=== PATIENT | male | born 1995 | race Caucasian/White ===

== ENCOUNTER 2017-01-02 10:22 | Emergency (ER) | payer BC ==
[2017-01-02 10:44] VITALS: BP 123/79
--- NOTE | 2017-01-02 12:04 | UC ---
Complaint Male HPI - HPI Summary HPI Summary: concerned about spots on and around penis--began about 1 week after having unprotected sex with a women - History of Current Complaint Chief Complaint: UCGU Stated Complaint: PERSONAL Time Seen by Provider: 01/02/17 11:41 Hx Obtained From: Patient Onset/Duration: Gradual Onset, Lasting Days, Still Present Timing: Constant Severity Initially: Mild Severity Currently: None Pain Intensity: 0 Pain Scale Used: 0-10 Numeric Location: Groin Aggravating Factor(s): Nothing Alleviating Factor(s): Nothing Associated Signs And Symptoms: Positive: Negative - Allergies/Home Medications Allergies/Adverse Reactions: Allergies Allergy/AdvReac Type Severity Reaction Status Date / Time No Known Allergies Allergy Verified 01/02/17 10:44 PMH/Surg Hx/FS Hx/Imm Hx Previously Healthy: Yes - Surgical History Surgical History: Yes Surgery Procedure, Year, and Place: t/a at age 12 yrs - Family History Known Family History: Positive: None Family History: no cardiovascular issues reported in family lineage - Social History Occupation: Student Lives: With Family Alcohol Use: Occasionally Substance Use Type: None Smoking Status (MU): Never Smoked Tobacco - Immunization History Most Recent Influenza Vaccination: no this year Hx Tetanus, Diphtheria Vaccination: Yes Immunizations Comment: has no had HPV Vaccine Review of Systems Constitutional: Negative Skin: Rash - scattered non painful discrete raised some are pustular on penis and pubic area Eyes: Negative ENT: Negative Respiratory: Negative Cardiovascular: Negative Gastrointestinal: Negative Genitourinary: Negative Motor: Negative Neurovascular: Negative Musculoskeletal: Negative Neurological: Negative Psychological: Negative All Other Systems Reviewed And Are Negative: Yes Physical Exam Triage Information Reviewed: Yes Appearance: Well-Appearing, No Pain Distress, Well-Nourished Vital Signs: Initial Vital Signs Temp 98.3 F 01/02/17 10:38 Pulse 85 01/02/17 10:38 Resp 18 01/02/17 10:38 BP 123/79 01/02/17 10:38 Vital Signs Reviewed: Yes Eye Exam: Normal Eyes: Positive: Conjunctiva Clear ENT Exam: Normal ENT: Positive: Normal ENT inspection, Hearing grossly normal. Negative: Nasal congestion, Nasal drainage, Trismus, Muffled/hoarse voice Dental Exam: Normal Neck exam: Normal Neck: Positive: Supple, Nontender, No Lymphadenopathy Respiratory Exam: Normal Respiratory: Positive: No respiratory distress, No accessory muscle use Cardiovascular Exam: Normal Cardiovascular: Positive: RRR, Pulses Normal, Brisk Capillary Refill Musculoskeletal Exam: Normal Musculoskeletal: Positive: Strength Intact, ROM Intact, No Edema Neurological Exam: Normal Neurological: Positive: Alert, Muscle Tone Normal Psychological Exam: Normal Psychological: Positive: Normal Response To Family Skin: Positive: Other - scattered discrete papular and pustular rash, not painful on pernis and pubic area--patients does shave Complaint Male Course/Dx - Course Course Of Treatment: bactrim, gentle warm wash, avoid stretching any tight clothing, [facility] at [facility] or here if needed - Differential Dx/Diagnosis Differential Diagnosis/HQI/PQRI: Other - HPV, folliculitis Provider Diagnoses: Folliculitis Discharge - Discharge Plan Condition: Stable Disposition: HOME Prescriptions: Sulfamethox/Trimethoprim DS* [Bactrim DS 800/160 TAB*] 1 tab PO BID #14 tab Patient Education Materials: Genital Warts (ED), Folliculitis (ED), HPV (Human Papillomavirus) Vaccine for Adults (ED) Referrals: Non Staff,Doctor [Primary Care Provider] - 2 Weeks Additional Instructions: The [facility] in [place] is an excellent resource for sexual health in [facility]
== END 2017-01-02 12:10 | disposition home or self-care (01) ==
LOC: UCCORT 10:22
DX: L73.9 Follicular disorder, unspecified (principal); Z11.3 Encounter for screening for infections with a predominantly sexual mode of transmission
CPT/HCPCS: 87491; 87591; 99212; G0463